=== PATIENT | male | born 1970 | race Hispanic/Latino ===

== ENCOUNTER 2018-05-08 09:38 | Outpatient (CLI) | payer OTHER ==
--- NOTE | 2018-05-08 21:00 | RAD ---
CERVICAL SPINE 05/08/18 AP, lateral, and open mouth views are provided. There is loss of the normal cervical lordosis which m ay be due to muscle spasm. No fracture, dislocation, or significant bony change was seen. there is so me equivocal disc space narrowing at C5-C6. The soft tissues are normal in thickness. C1 to dens dist ance is normal. IMPRESSION: Loss of lordosis. Equivocal narrowing at C5-C6. POS: HOME
== END 2018-05-08 09:39 | disposition home or self-care (01) ==
LOC: BURRAD 09:38
PROVIDERS: ATTEND Family Medicine
DX: M54.12 Radiculopathy, cervical region (principal); M48.02 Spinal stenosis, cervical region; M40.50 Lordosis, unspecified, site unspecified
CPT/HCPCS: 72040